=== PATIENT | male | born 1975 | race Caucasian/White ===

== ENCOUNTER 2017-05-01 09:04 | Inpatient (IN) | payer OTHER ==
[2017-05-01 09:31] VITALS: BMI 25.0
--- NOTE | 2017-05-01 09:44 | HP ---
CIWA Score - CIWA Score Nausea/Vomitin-Mild Nausea/No Vomiting Muscle Tremors: 4-Moderate,w/Arms Extend Anxiety: 4-Mod. Anxious/Guarded Agitation: 0-Normal Activity Paroxysmal Sweats: 1-Minimal Palms Moist Orientation: 0-Oriented Tacttile Disturbances: 1-Very Mild Itch/Numbness Auditory Disturbances: 1-Very Mild Visual Disturbances: 1-Very Mild Sensitivity Headache: 3-Moderate CIWA-Ar Total Score: 16 Admission ROS BHS - HPI Chief Complaint: I need to stop, this is crazy, I've never drank this much, honestly I can't stop on my own and I keep blacking out Allergies/Adverse Reactions: Allergies Allergy/AdvReac Type Severity Reaction Status Date / Time penicillin G Allergy Severe Hives Verified 05/01/17 09:25 History of Present Illness: 42 yo gentleman here for detox from alcohol - one of several admissions for detox, gives past history of seizure, black outs - hit head a week ago - evaluated at [facility], states multiple concussions due to black outs/falls. Exam Limitations: Clinical Condition - Ebola screening Have you traveled outside of the country in the last 21 days: No Have you had contact with anyone from an Ebola affected area: No Have you been sick,other than usual withdrawal symptoms: No Do you have a fever: No - Review of Systems Constitutional: Loss of Appetite, Malaise, Changes in sleep EENT: reports: Nose Congestion Respiratory: reports: Cough Cardiac: reports: No Symptoms Reported GI: reports: Poor Appetite, Poor Fluid Intake, Indigestion : reports: Frequency Musculoskeletal: reports: Back Pain Integumentary: reports: No Symptoms Reported Neuro: reports: Headache Endocrine: reports: No Symptoms Reported Hematology: reports: No Symptoms Reported Psychiatric: reports: Judgement Intact, Mood/Affect Appropiate, Orientated x3, Anxious Other Systems: Reviewed and Negative Patient History - Patient Medical History Hx Anemia: No Hx Asthma: No Hx Chronic Obstructive Pulmonary Disease (COPD): No Hx Cancer: No Hx Cardiac Disorders: No Hx Congestive Heart Failure: No Hx Hypertension: No Hx Hypercholesterolemia: No Hx Pacemaker: No HX Cerebrovascular Accident: No Hx Seizures: Yes (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.) Hx Dementia: No Hx Diabetes: No Hx Gastrointestinal Disorders: No Hx Liver Disease: No Hx Genitourinary Disorders: No Hx Sexually Transmitted Disorders: No Hx Renal Disease (ESRD): No Hx Thyroid Disease: No Hx Human Immunodeficiency Virus (HIV): No (last 2013) Hx Hepatitis C: No Hx Depression: No Hx Suicide Attempt: No Hx Bipolar Disorder: Yes (non compliance, hospitalized [facility] February 2017) Hx Schizophrenia: No Other Medical History: hx multiple concussions - Patient Surgical History Past Surgical History: Yes Hx Neurologic Surgery: No Hx Cataract Extraction: No Hx Cardiac Surgery: No Hx Lung Surgery: No Hx Breast Surgery: No Hx Breast Biopsy: No Hx Abdominal Surgery: No Hx Appendectomy: No Hx Cholecystectomy: No Hx Genitourinary Surgery: No Hx Section: No Hx Orthopedic Surgery: Yes (Left Knee at age 16 arthroscopic ) Other Surgical History: mandible left in 2012 Anesthesia Reaction: No - PPD History Previous Implant?: Yes Documented Results: Positive w/o proof (took IN H x 9 months - [place]- age 29) PPD to be Administered?: No - Reproductive History Patient is a Female of Child Bearing Age (11 -55 yrs old): No (male) - Smoking Cessation Smoking history: Current every day smoker Have you smoked in the past 12 months: Yes Aproximately how many cigarettes per day: 10 Cigars Per Day: 0 Hx Chewing Tobacco Use: No Initiated information on smoking cessation: Yes 'Breaking Loose' booklet given: 05/01/17 (give on floor) - Substance & Tx. History Hx Alcohol Use: Yes Hx Substance Use: Yes Substance Use Type: Alcohol, Cocaine, Heroin, Marijuana Hx Substance Use Treatment: Yes (detox, methadone in past, hx suboxone) - Substances Abused Alcohol Route: Oral Frequency: Daily Amount used: LIQOUR- 4 PINTS Age of first use: 13 Date of Last Use: 05/01/17 Cocaine Route: Inhalation Frequency: 1-3 times last 30 days Amount used: $40 Age of first use: 25 Date of Last Use: 04/30/17 Family Disease History - Family Disease History Family Disease History: Heart Disease: Father (living, hx etoh), Other: Grandparent (alcohol), Father, Mother (living, parkinsons, bzo), Brother (living , sober x3 years, chronic fatigue) Admission Physical Exam BHS - Vital Signs Vital Signs: Vital Signs - 24 hr 05/01/17 09:26 Temperature 98.5 F Pulse Rate 83 Respiratory 18 Rate Blood Pressure 128/78 - Physical General Appearance: Yes: Nourished, Appropriately Dressed, Mild Distress, Anxious HEENTM: Yes: Hearing grossly Normal, Normocephalic, Normal Voice, Pharynx Normal , Other (stitches over left eyebrow, echymosis over left eyelid) Respiratory: Yes: Normal Breath Sounds, No Respiratory Distress Neck: Yes: No masses,lesions,Nodules, Supple Breast: Yes: Breast Exam Deferred Cardiology: Yes: Regular Rhythm, Regular Rate Abdominal: Yes: Soft Genitourinary: Yes: Frequency Musculoskeletal: Yes: full range of Motion, Gait Steady Extremities: Yes: Normal Inspection, Normal Range of Motion, Non-Tender Neurological: Yes: Fully Oriented, Alert, Normal Mood/Affect, Normal Response Integumentary: Yes: Normal Color, Dry, Warm Lymphatic: Yes: Within Normal Limits - Diagnostic (1) Uncomplicated alcohol dependence Current Visit: Yes Status: Chronic (2) Nicotine dependence Current Visit: Yes Status: Chronic Qualifiers: Nicotine product type: cigarettes Substance use status: uncomplicated Qualified Code(s): F17.210 - Nicotine dependence, cigarettes, uncomplicated (3) PPD positive, treated Current Visit: Yes Status: Chronic Comment: treated with INH, CXR 07/24/16 negative (4) History of traumatic head injury Current Visit: Yes Status: Acute Comment: states blacked out a week ago - hit head - treated at [facility] - laceration of left eye - stitches Cleared for Admission [facility] - Detox or Rehab [facility] Level of Care: Medically Managed Detox Regimen/Protocol: Librium [facility] Breath Alcohol Content Breath Alcohol Content: 0 Urine Drug Screen - Results Drug Screen Negative: No Urine Drug Screen Results: HU-Cocaine
[2017-05-01] MEDS ORDERED: MAG HYDROX/AL HYDROX/SIMETH 30 ML UNIT-DOSE CUP PO PRN (10:04)
[2017-05-01] MEDS ORDERED: MAGNESIUM CITRATE 300 ML BOTTLE PO PRN (10:04)
[2017-05-01] MEDS ORDERED: hydrOXYzine PAMOATE 50 MG CAPSULE (FP) PO PRN (10:04)
[2017-05-01] MEDS ORDERED: ACETAMINOPHEN 325 MG TABLET (FP) PO PRN (10:04)
[2017-05-01] MEDS ORDERED: LOPERAMIDE HCL 2 MG CAPSULE PO PRN (10:04)
[2017-05-01] MEDS ORDERED: MENTHOL/PHENOL 1 EACH UD MM PRN (10:04)
[2017-05-01] MEDS ORDERED: MAGNESIUM HYDROX 2400MG/30ML ORAL SUSPENSION 30 ML CUP PO PRN (10:04)
[2017-05-01] MEDS ORDERED: chlordiazePOXIDE HCL 25 MG CAPSULE PO PRN (10:04)
[2017-05-01] MEDS ORDERED: chlordiazePOXIDE HCL 25 MG CAPSULE PO ONE (11:15)
[2017-05-01] MEDS: NICOTINE 21 MG/24 HOURS TOPICAL PATCH TD SCH (12:06)
[2017-05-01] MEDS: guaiFENesin/D-METHORPHAN HB 10 ML UNIT-DOSE CUPS PO PRN ×2 (13:42→23:33)
[2017-05-01] MEDS: P-EPHED 60MG/TRIPROLIDI 2.5MG TABLET PO PRN ×2 (13:42→23:33)
[2017-05-01] MEDS: chlordiazePOXIDE HCL 25 MG CAPSULE PO SCH ×2 (18:07→22:53)
[2017-05-01] MEDS ORDERED: diphenhydrAMINE HCL 50 MG CAPSULE PO PRN (22:00)
[2017-05-01] MEDS ORDERED: PATIENT'S OWN MEDICATION (NON-FORMULARY) (Gabapentin [Neurontin] 600 MG) PO SCH (22:00)
[2017-05-01 22:31] LABS: URINE APPEARANCE CLOUDY; URINE BILIRUBIN NEGATIVE (NEGATIVE); URINE BLOOD NEGATIVE (NEGATIVE); URINE COLOR AMBER; URINE GLUCOSE (UA) NEGATIVE (NEGATIVE); URINE KETONE 1+ (NEGATIVE); URINE LEUK ESTERASE NEGATIVE (NEGATIVE); URINE NITRITE NEGATIVE (NEGATIVE); URINE UROBILINOGEN NEGATIVE mg/dL (0.2-1.0)
[2017-05-01 22:38] LABS: URINE PROTEIN 1+ (NEGATIVE)
[2017-05-01 22:45] LABS: URINE BACTERIA RARE /hpf (NONE SEEN); URINE HYALINE CAST 21 /lpf; URINE MUCUS MANY; URINE RBC 2 /hpf (0-3); URINE WBC 4 /hpf (3-5)
[2017-05-01] MEDS: GABAPENTIN 300 MG CAPSULE (FP) PO SCH (22:53)
[2017-05-01] MEDS: THIAMINE HCL 100 MG TABLET (FP) PO SCH (22:53)
[2017-05-02] MEDS: chlordiazePOXIDE HCL 25 MG CAPSULE PO SCH ×4 (06:11→22:32)
[2017-05-02] MEDS: guaiFENesin/D-METHORPHAN HB 10 ML UNIT-DOSE CUPS PO PRN ×2 (07:13→21:35)
[2017-05-02] MEDS: P-EPHED 60MG/TRIPROLIDI 2.5MG TABLET PO PRN ×2 (07:13→21:35)
--- NOTE | 2017-05-02 09:56 | EKG ---
Test Reason : Blood Pressure : / mmHG Vent. Rate : 090 BPM Atrial Rate : 090 BPM P-R Int : 138 ms QRS Dur : 102 ms QT Int : 384 ms P-R-T Axes : 063 065 051 degrees QTc Int : 469 ms NORMAL SINUS RHYTHM POSSIBLE LEFT ATRIAL ENLARGEMENT NO PREVIOUS ECGS AVAILABLE Confirmed by MD GUILLERMO, LILY (2012) on 05/02/2017 9:55:43 AM Referred By: Confirmed By:LILY LI MD
[2017-05-02 09:57] LABS: MCH 31.5 pg (25.7-33.7); MCHC 34.1 g/dl (32.0-35.9); MEAN CELL VOLUME 92.2 fl (80-96); MEAN PLT VOLUME 9.3 fl (7.5-11.1); PLATELET COUNT 231 K/MM3 (134-434); RDW 13.8 % (11.9-15.9); WHITE BLOOD COUNT 7.4 K/mm3 (4.0-10.0)
[2017-05-02 10:00] LABS: ALBUMIN 3.9 g/dl (3.4-5.0); SGOT/AST 21 U/L (15-37); SGPT/ALT 39 U/L (12-78)
[2017-05-02 10:04] LABS: ALK PHOS 94 U/L (45-117); ANION GAP 10 (8-16); BILIRUBIN,TOTAL 0.5 mg/dL (0.2-1.0); CALCIUM 9.6 mg/dL (8.5-10.1); CO2 26 mmol/L (21-32); CREATININE 0.9 mg/dL (0.7-1.3); GLUCOSE,RANDOM 96 mg/dL (74-106); TOT PROT 7.2 g/dl (6.4-8.2)
[2017-05-02] MEDS: ASPIRIN 325 MG TABLET PO SCH (10:30)
[2017-05-02] MEDS: NICOTINE 21 MG/24 HOURS TOPICAL PATCH TD SCH (10:30)
[2017-05-02] MEDS: PRENATAL VITAMINS W/ FOLIC ACID TABLET (FP) PO SCH (10:30)
[2017-05-02] MEDS: AZITHROMYCIN 250 MG TABLET PO SCH (15:07)
--- NOTE | 2017-05-02 18:38 | PN ---
[facility] CIWA - CIWA Score Nausea/Vomitin-No Nausea/No Vomiting Muscle Tremors: 4-Moderate,w/Arms Extend Anxiety: 4-Mod. Anxious/Guarded Agitation: 3 Paroxysmal Sweats: 3 Orientation: 0-Oriented Tacttile Disturbances: 0-None Auditory Disturbances: 0-None Visual Disturbances: 0-None Headache: 0-None Present CIWA-Ar Total Score: 14 S Progress Note (SOAP) Subjective: Anxiety,tremors,sweating,restless,interrupted sleep. Objective: 05/02/17 18:37 Vital Signs - 8 hr 05/02/17 05/02/17 14:35 17:35 Temperature 98.1 F 97.9 F Pulse Rate 78 76 Respiratory 18 18 Rate Blood Pressure 121/81 117/70 Laboratory Last Values WBC 7.4 K/mm3 (4.0-10.0) D 05/02/17 07:50 RBC 5.04 M/mm3 (4.00-5.60) 05/02/17 07:50 Hgb 15.9 GM/dL (11.7-16.9) D 05/02/17 07:50 Hct 46.5 % (35.4-49) 05/02/17 07:50 MCV 92.2 fl (80-96) 05/02/17 07:50 MCH 31.5 pg (25.7-33.7) 05/02/17 07:50 MCHC 34.1 g/dl (32.0-35.9) 05/02/17 07:50 RDW 13.8 % (11.9-15.9) 05/02/17 07:50 Plt Count 231 K/MM3 (134-434) 05/02/17 07:50 MPV 9.3 fl (7.5-11.1) 05/02/17 07:50 Sodium 139 mmol/L (136-145) 05/02/17 07:50 Potassium 4.2 mmol/L (3.5-5.1) 05/02/17 07:50 Chloride 103 mmol/L (98-107) 05/02/17 07:50 Carbon Dioxide 26 mmol/L (21-32) 05/02/17 07:50 Anion Gap 10 (8-16) 05/02/17 07:50 BUN 10 mg/dL (7-18) D 05/02/17 07:50 Creatinine 0.9 mg/dL (0.7-1.3) 05/02/17 07:50 Creat Clearance w eGFR > 60 (>60) 05/02/17 07:50 Random Glucose 96 mg/dL (74-106) 05/02/17 07:50 Calcium 9.6 mg/dL (8.5-10.1) 05/02/17 07:50 Total Bilirubin 0.5 mg/dL (0.2-1.0) 05/02/17 07:50 AST 21 U/L (15-37) 05/02/17 07:50 ALT 39 U/L (12-78) D 05/02/17 07:50 Alkaline Phosphatase 94 U/L (45-117) 05/02/17 07:50 Total Protein 7.2 g/dl (6.4-8.2) 05/02/17 07:50 Albumin 3.9 g/dl (3.4-5.0) D 05/02/17 07:50 Urine Color 05/01/17 22:00 Urine Appearance Cloudy 05/01/17 22:00 Urine pH 5.0 (5.0-8.0) 05/01/17 22:00 Ur Specific [place] >= 1.030 (1.005-1.025) H 05/01/17 22:00 Urine Protein 1+ (NEGATIVE) H 05/01/17 22:00 Urine Glucose (UA) Negative (NEGATIVE) 05/01/17 22:00 Urine Ketones 1+ (NEGATIVE) H 05/01/17 22:00 Urine Blood Negative (NEGATIVE) 05/01/17 22:00 Urine Nitrite Negative (NEGATIVE) 05/01/17 22:00 Urine Bilirubin Negative (NEGATIVE) 05/01/17 22:00 Urine Urobilinogen Negative mg/dL (0.2-1.0) 05/01/17 22:00 Ur Leukocyte Esterase Negative (NEGATIVE) 05/01/17 22:00 Urine RBC 2 /hpf (0-3) 05/01/17 22:00 Urine WBC 4 /hpf (3-5) 05/01/17 22:00 Urine Bacteria Rare /hpf (NONE SEEN) 05/01/17 22:00 Hyaline Casts 21 /lpf 05/01/17 22:00 Urine Mucus Many 05/01/17 22:00 RPR Titer Nonreactive (NONREACTIVE) 05/02/17 07:50 labs noted Assessment: 05/02/17 18:38 Withdrawal sx. Plan: Continue detox
[2017-05-02] MEDS ORDERED: QUEtiapine FUMARATE 100 MG TABLET (FP) PO SCH (22:00)
[2017-05-02] MEDS: GABAPENTIN 300 MG CAPSULE (FP) PO SCH (22:32)
[2017-05-02] MEDS: THIAMINE HCL 100 MG TABLET (FP) PO SCH (22:33)
[2017-05-03] MEDS: guaiFENesin/D-METHORPHAN HB 10 ML UNIT-DOSE CUPS PO PRN ×2 (02:54→10:47)
[2017-05-03] MEDS: P-EPHED 60MG/TRIPROLIDI 2.5MG TABLET PO PRN ×2 (02:55→10:46)
[2017-05-03] MEDS: chlordiazePOXIDE HCL 25 MG CAPSULE PO SCH ×2 (05:21→10:43)
--- NOTE | 2017-05-03 08:52 | CONSULT ---
[facility] Psychiatric Consult - Data Date of interview: 05/03/17 Admission source: [facility] Identifying data: This is 42 years old male with no psychiatric hospitalization history intoxicated with: Alcohol, Cannabis, Cocaine and Nicotine Substance Abuse History: - Smoking Cessation. Smoking history: Current every day smoker. Have you smoked in the past 12 months: Yes. Aproximately how many cigarettes per day: 10. Cigars Per Day: 0. Hx Chewing Tobacco Use: No. Initiated information on smoking cessation: Yes. 'Breaking Loose' booklet given : 05/01/17 (give on floor). - Substance & Tx. History. Hx Alcohol Use: Yes. Hx Substance Use: Yes. Substance Use Type: Alcohol, Cocaine, Heroin, Marijuana. Hx Substance Use Treatment: Yes (detox, methadone in past, hx suboxone). - Substances Abused. Alcohol. Route: Oral. Frequency: Daily. Amount used: LIQOUR- 4 PINTS. Age of first use: 13. Date of Last Use: . Cocaine. Route: Inhalation. Frequency: 1-3 times last 30 days. Amount used: $40. Age of first use: 25. Date of Last Use: 04/30/17 Medical History: History od head injury, PPD+ history Psychiatric History: Patient reports history of anxiety and depression, reports taking prior to admission: Seroqueol 200mg po qhs, Gabapentine 600mg po tid. 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 typewriter inspector remind him Schizoaffective disgnosis Physical/Sexual Abuse/Trauma History: Denies Additional Comment: Seroqueol 200mg po qhs, Gabapentine 600mg po tid Mental Status Exam - Mental Status Exam Alert and Oriented to: Person Cognitive Function: Fair Patient Appearance: Unkempt Mood: Anxious Affect: Constricted Patient Behavior: Guarded Speech Pattern: Excessive Voice Loudness: Mildly Loud Thought Process: Goal Oriented Thought Disorder: Being Controlled Hallucinations: Denies Suicidal Ideation: Denies Homicidal Ideation: Denies Insight/Judgement: Fair Sleep: Difficulty falling asleep Appetite: Weight gain Muscle strength/Tone: Normal Gait/Station: Normal Additional Comments: Seroqueol 200mg po qhs, Gabapentine 600mg po tid Psychiatric Findings - Problem List ([place] 1, 2,3) (1) History of traumatic head injury Current Visit: Yes Status: Acute Comment: states blacked out a week ago - hit head - treated at [facility] - laceration of left eye - stitches (2) Nicotine dependence Current Visit: Yes Status: Chronic Qualifiers: Nicotine product type: cigarettes Substance use status: uncomplicated Qualified Code(s): F17.210 - Nicotine dependence, cigarettes, uncomplicated (3) Uncomplicated alcohol dependence Current Visit: Yes Status: Chronic (4) Cannabis dependence, uncomplicated Current Visit: No Status: Chronic (5) Cocaine dependence, uncomplicated Current Visit: No Status: Chronic (6) Schizoaffective disorder Current Visit: No Status: Chronic - Initial Treatment Plan Initial Treatment Plan: Seroqueol 200mg po qhs, Gabapentine 600mg po tid
[2017-05-03] MEDS: NICOTINE 21 MG/24 HOURS TOPICAL PATCH TD SCH (10:42)
[2017-05-03] MEDS: PRENATAL VITAMINS W/ FOLIC ACID TABLET (FP) PO SCH (10:42)
[2017-05-03] MEDS: ASPIRIN 325 MG TABLET PO SCH (10:42)
[2017-05-03] MEDS: AZITHROMYCIN 250 MG TABLET PO SCH (10:42)
--- NOTE | 2017-05-03 11:32 | PN ---
S CIWA - CIWA Score Nausea/Vomitin-No Nausea/No Vomiting Muscle Tremors: 3 Anxiety: 4-Mod. Anxious/Guarded Agitation: 4-Moderately Restless Paroxysmal Sweats: 3 Orientation: 0-Oriented Tacttile Disturbances: 0-None Auditory Disturbances: 0-None Visual Disturbances: 0-None Headache: 0-None Present CIWA-Ar Total Score: 14 BHS Progress Note (SOAP) Subjective: sweating,anxiety,tremors,interrupted sleep,restless. Pt. has sutures in left upper eyelid which were placed a week ago. Objective: 05/03/17 11:31 Vital Signs - 8 hr 05/03/17 05/03/17 06:00 09:45 Temperature 97.5 F L 95.7 F L Pulse Rate 60 83 Respiratory 18 16 Rate Blood Pressure 103/62 133/89 Laboratory Tests 05/01/17 05/02/17 05/02/17 22:00 07:50 07:50 WBC 7.4 D RBC 5.04 Hgb 15.9 D Hct 46.5 MCV 92.2 MCH 31.5 MCHC 34.1 RDW 13.8 Plt Count 231 MPV 9.3 Sodium 139 Potassium 4.2 Chloride 103 Carbon Dioxide 26 Anion Gap 10 BUN 10 D Creatinine 0.9 Creat Clearance w eGFR > 60 Random Glucose 96 Calcium 9.6 Total Bilirubin 0.5 AST 21 ALT 39 D Alkaline Phosphatase 94 Total Protein 7.2 Albumin 3.9 D Urine Color Sun Urine Appearance Cloudy Urine pH 5.0 Ur Specific [place] >= 1.030 H Urine Protein 1+ H Urine Glucose (UA) Negative Urine Ketones 1+ H Urine Blood Negative Urine Nitrite Negative Urine Bilirubin Negative Urine Urobilinogen Negative Ur Leukocyte Esterase Negative Urine RBC 2 Urine WBC 4 Urine Bacteria Rare Hyaline Casts 21 Urine Mucus Many RPR Titer 05/02/17 07:50 WBC RBC Hgb Hct MCV MCH MCHC RDW Plt Count MPV Sodium Potassium Chloride Carbon Dioxide Anion Gap BUN Creatinine Creat Clearance w eGFR Random Glucose Calcium Total Bilirubin AST ALT Alkaline Phosphatase Total Protein Albumin Urine Color Urine Appearance Urine pH Ur Specific [place] Urine Protein Urine Glucose (UA) Urine Ketones Urine Blood Urine Nitrite Urine Bilirubin Urine Urobilinogen Ur Leukocyte Esterase Urine RBC Urine WBC Urine Bacteria Hyaline Casts Urine Mucus RPR Titer Nonreactive labs noted Assessment: 05/03/17 11:31 Withdrawal sx. Plan: Continue detox
[2017-05-03] MEDS: GABAPENTIN 300 MG CAPSULE (FP) PO SCH ×2 (14:42→22:35)
[2017-05-03] MEDS: chlordiazePOXIDE 5 MG CAPSULE PO SCH ×2 (17:45→22:35)
[2017-05-03] MEDS: THIAMINE HCL 100 MG TABLET (FP) PO SCH (22:35)
[2017-05-03] MEDS: QUEtiapine FUMARATE 200 MG TABLET PO SCH (22:36)
[2017-05-04] MEDS: GABAPENTIN 300 MG CAPSULE (FP) PO SCH ×3 (06:35→22:27)
[2017-05-04] MEDS: chlordiazePOXIDE 5 MG CAPSULE PO SCH ×2 (06:35→11:17)
--- NOTE | 2017-05-04 10:17 | PN ---
BHS Progress Note (SOAP) Subjective: [place], sweats, interrupted sleep, anxiety, tremors Objective: 05/04/17 10:16 Vital Signs - 8 hr 05/04/17 05/04/17 03:30 06:41 Temperature 97.3 F L Pulse Rate 75 Respiratory 18 16 Rate Blood Pressure 103/69 Laboratory Tests 05/01/17 05/02/17 05/02/17 22:00 07:50 07:50 WBC 7.4 D RBC 5.04 Hgb 15.9 D Hct 46.5 MCV 92.2 MCH 31.5 MCHC 34.1 RDW 13.8 Plt Count 231 MPV 9.3 Sodium 139 Potassium 4.2 Chloride 103 Carbon Dioxide 26 Anion Gap 10 BUN 10 D Creatinine 0.9 Creat Clearance w eGFR > 60 Random Glucose 96 Calcium 9.6 Total Bilirubin 0.5 AST 21 ALT 39 D Alkaline Phosphatase 94 Total Protein 7.2 Albumin 3.9 D Urine Color Sun Urine Appearance Cloudy Urine pH 5.0 Ur Specific [place] >= 1.030 H Urine Protein 1+ H Urine Glucose (UA) Negative Urine Ketones 1+ H Urine Blood Negative Urine Nitrite Negative Urine Bilirubin Negative Urine Urobilinogen Negative Ur Leukocyte Esterase Negative Urine RBC 2 Urine WBC 4 Urine Bacteria Rare Hyaline Casts 21 Urine Mucus Many RPR Titer 05/02/17 07:50 WBC RBC Hgb Hct MCV MCH MCHC RDW Plt Count MPV Sodium Potassium Chloride Carbon Dioxide Anion Gap BUN Creatinine Creat Clearance w eGFR Random Glucose Calcium Total Bilirubin AST ALT Alkaline Phosphatase Total Protein Albumin Urine Color Urine Appearance Urine pH Ur Specific [place] Urine Protein Urine Glucose (UA) Urine Ketones Urine Blood Urine Nitrite Urine Bilirubin Urine Urobilinogen Ur Leukocyte Esterase Urine RBC Urine WBC Urine Bacteria Hyaline Casts Urine Mucus RPR Titer Nonreactive Assessment: 05/04/17 10:16 withdrawal sx Plan: cont detox
[2017-05-04] MEDS: AZITHROMYCIN 250 MG TABLET PO SCH (11:17)
[2017-05-04] MEDS: PRENATAL VITAMINS W/ FOLIC ACID TABLET (FP) PO SCH (11:17)
[2017-05-04] MEDS: ASPIRIN 325 MG TABLET PO SCH (11:17)
[2017-05-04] MEDS: NICOTINE 21 MG/24 HOURS TOPICAL PATCH TD SCH (11:18)
[2017-05-04] MEDS: chlordiazePOXIDE HCL 10 MG CAPSULE PO SCH ×2 (17:40→22:27)
[2017-05-04] MEDS: guaiFENesin/D-METHORPHAN HB 10 ML UNIT-DOSE CUPS PO PRN (20:15)
[2017-05-04] MEDS: P-EPHED 60MG/TRIPROLIDI 2.5MG TABLET PO PRN (20:15)
[2017-05-04] MEDS: QUEtiapine FUMARATE 200 MG TABLET PO SCH (22:27)
[2017-05-04] MEDS: THIAMINE HCL 100 MG TABLET (FP) PO SCH (22:27)
[2017-05-05] MEDS: GABAPENTIN 300 MG CAPSULE (FP) PO SCH (05:26)
[2017-05-05] MEDS: chlordiazePOXIDE HCL 10 MG CAPSULE PO SCH (05:26)
--- NOTE | 2017-05-05 10:03 | DS ---
[facility] Detox Discharge Summary Admission Date: 05/01/17 Discharge Date: 05/05/17 - History Present History: Alcohol Dependence, Cannabis Dependence, Cocaine Dependence Pertinent Past History: anxiety, insomnia, depression, nicotien dependence - Physical Exam Results Vital Signs: Vital Signs Temperature 97.7 F 05/05/17 06:26 Pulse Rate 78 05/05/17 06:26 Respiratory Rate 18 05/05/17 06:26 Blood Pressure 101/70 05/05/17 06:26 O2 Sat by Pulse Oximetry (%) Laboratory Tests 05/01/17 05/02/17 05/02/17 22:00 07:50 07:50 WBC 7.4 D RBC 5.04 Hgb 15.9 D Hct 46.5 MCV 92.2 MCH 31.5 MCHC 34.1 RDW 13.8 Plt Count 231 MPV 9.3 Sodium 139 Potassium 4.2 Chloride 103 Carbon Dioxide 26 Anion Gap 10 BUN 10 D Creatinine 0.9 Creat Clearance w eGFR > 60 Random Glucose 96 Calcium 9.6 Total Bilirubin 0.5 AST 21 ALT 39 D Alkaline Phosphatase 94 Total Protein 7.2 Albumin 3.9 D Urine Color Sun Urine Appearance Cloudy Urine pH 5.0 Ur Specific [place] >= 1.030 H Urine Protein 1+ H Urine Glucose (UA) Negative Urine Ketones 1+ H Urine Blood Negative Urine Nitrite Negative Urine Bilirubin Negative Urine Urobilinogen Negative Ur Leukocyte Esterase Negative Urine RBC 2 Urine WBC 4 Urine Bacteria Rare Hyaline Casts 21 Urine Mucus Many RPR Titer 05/02/17 07:50 WBC RBC Hgb Hct MCV MCH MCHC RDW Plt Count MPV Sodium Potassium Chloride Carbon Dioxide Anion Gap BUN Creatinine Creat Clearance w eGFR Random Glucose Calcium Total Bilirubin AST ALT Alkaline Phosphatase Total Protein Albumin Urine Color Urine Appearance Urine pH Ur Specific [place] Urine Protein Urine Glucose (UA) Urine Ketones Urine Blood Urine Nitrite Urine Bilirubin Urine Urobilinogen Ur Leukocyte Esterase Urine RBC Urine WBC Urine Bacteria Hyaline Casts Urine Mucus RPR Titer Nonreactive Pertinent Admission Physical Exam Findings: withdrawwal sx - Treatment Hospital Course: Detox Protocol Followed, Detoxed Safely, Responded well, Discharged Condition Good, Rehab Referral Accepted - Medication Discharge Medications: Ambulatory Orders Venlafaxine HCl ER [Effexor Xr -] 75 mg PO DAILY 07/23/16 Aspirin [ASA -] 325 mg PO DAILY 05/01/17 Gabapentin [Neurontin] 600 mg PO HS 05/01/17 Quetiapine Fumarate [Seroquel -] 200 mg PO HS 05/01/17 Gabapentin [Neurontin -] 600 mg PO HS #90 cap 05/03/17 Quetiapine Fumarate [Seroquel -] 200 mg PO HS #30 tab 05/03/17 - Diagnosis (1) History of traumatic head injury Current Visit: No Status: Inactive (2) Nicotine dependence Current Visit: Yes Status: Chronic Qualifiers: Nicotine product type: cigarettes Substance use status: uncomplicated Qualified Code(s): F17.210 - Nicotine dependence, cigarettes, uncomplicated (3) PPD positive, treated Current Visit: No Status: Inactive (4) Cannabis dependence, uncomplicated Current Visit: No Status: Chronic (5) Cocaine dependence, uncomplicated Current Visit: Yes Status: Chronic (6) Neuropathy Current Visit: Yes Status: Chronic (7) Schizoaffective disorder Current Visit: Yes Status: Chronic (8) Varicose vein of leg Current Visit: No Status: Chronic (9) Alcohol dependence with uncomplicated withdrawal Current Visit: Yes Status: Acute - AMA Did Patient Leave Against Medical Advice: No
[2017-05-05 11:45] VITALS: BP 127/87; PULSE 107; TEMP 97.5
== END 2017-05-05 09:24 | disposition home or self-care (01) | DRG 774 ==
LOC: YASAS 09:04 → Y6N 10:30
PROVIDERS: ADMIT Internal Medicine Addiction Medicine; ATTEND Internal Medicine Addiction Medicine
PROC: HZ2ZZZZ Detoxification Services for Substance Abuse Treatment (ICD-10-PCS; principal; 2017-05-01)
DX: F10.230 Alcohol dependence with withdrawal, uncomplicated (principal); F14.20 Cocaine dependence, uncomplicated; F12.20 Cannabis dependence, uncomplicated; F17.210 Nicotine dependence, cigarettes, uncomplicated; F25.9 Schizoaffective disorder, unspecified; F31.9 Bipolar disorder, unspecified; G40.509 Epileptic seizures related to external causes, not intractable, without status epilepticus
CPT/HCPCS: 36415; 80053; 81003; 81015; 85027; 86593; 93005; 93010

== ENCOUNTER 2017-09-28 11:05 | Inpatient (IN) | payer OTHER ==
[2017-09-28 13:38] VITALS: BMI 26.4
--- NOTE | 2017-09-28 14:11 | HP ---
CIWA Score - CIWA Score Nausea/Vomitin-No Nausea/No Vomiting Muscle Tremors: 4-Moderate,w/Arms Extend Anxiety: 4-Mod. Anxious/Guarded Agitation: 4-Moderately Restless Paroxysmal Sweats: 3 Orientation: 0-Oriented Tacttile Disturbances: 0-None Auditory Disturbances: 0-None Visual Disturbances: 0-None Headache: 1-Very Mild CIWA-Ar Total Score: 16 Admission ROS BHS - HPI Chief Complaint: I need to detox and go to rehab Allergies/Adverse Reactions: Allergies Allergy/AdvReac Type Severity Reaction Status Date / Time penicillin G Allergy Severe Hives Verified 09/28/17 13:44 History of Present Illness: pt is a 42yr old male with a history of alcohol dependence seeking detox for treatment. Exam Limitations: No Limitations - Ebola screening Have you traveled outside of the country in the last 21 days: No (N) Have you had contact with anyone from an Ebola affected area: No Have you been sick,other than usual withdrawal symptoms: No Do you have a fever: No - Review of Systems Constitutional: Chills, Night Sweats, Changes in sleep EENT: reports: No Symptoms Reported Respiratory: reports: No Symptoms reported Cardiac: reports: Syncope GI: reports: Constipated, Diarrhea, Nausea, Poor Appetite, Poor Fluid Intake : reports: No Symptoms Reported Musculoskeletal: reports: Back Pain, Joint Pain Integumentary: reports: Flushing, Sweating Neuro: reports: Headache, Tingling, Tremors Endocrine: reports: Excessive Sweating, Flushing, Intolerance to Cold, Intolerance to Heat Hematology: reports: No Symptoms Reported Psychiatric: reports: Judgement Intact, Mood/Affect Appropiate, Orientated x3, Agitated, Anxious, Depressed Other Systems: Reviewed and Negative Patient History - Patient Medical History Hx Anemia: No Hx Asthma: No Hx Chronic Obstructive Pulmonary Disease (COPD): No Hx Cancer: No Hx Cardiac Disorders: No Hx Congestive Heart Failure: No Hx Hypertension: No Hx Hypercholesterolemia: No Hx Pacemaker: No HX Cerebrovascular Accident: No Hx Seizures: No Hx Dementia: No Hx Diabetes: No Hx Gastrointestinal Disorders: Yes (STOMACH ULCER resolved) Hx Liver Disease: No Hx Genitourinary Disorders: No Hx Sexually Transmitted Disorders: No Hx Renal Disease (ESRD): No Hx Thyroid Disease: No Hx Human Immunodeficiency Virus (HIV): No (negative) Hx Hepatitis C: No (negative) Hx Depression: No Hx Suicide Attempt: No (denies) Hx Bipolar Disorder: Yes (non compliance, hospitalized [facility] February 2017) Hx Schizophrenia: No - Patient Surgical History Past Surgical History: Yes Hx Neurologic Surgery: No Hx Cataract Extraction: No Hx Cardiac Surgery: No Hx Lung Surgery: No Hx Breast Surgery: No Hx Breast Biopsy: No Hx Abdominal Surgery: No Hx Appendectomy: No Hx Cholecystectomy: No Hx Genitourinary Surgery: No Hx Section: No Hx Orthopedic Surgery: Yes (Left Knee at age 16 arthroscopic ) Other Surgical History: mandible left in 2012/ tooth removed 2weeks ago 2018 Anesthesia Reaction: No - PPD History Previous Implant?: Yes Documented Results: Positive w/o proof PPD to be Administered?: No - Reproductive History Patient is a Female of Child Bearing Age (11 -55 yrs old): No - Smoking Cessation Smoking history: Current every day smoker Have you smoked in the past 12 months: Yes Aproximately how many cigarettes per day: 10 Cigars Per Day: 0 Hx Chewing Tobacco Use: No Initiated information on smoking cessation: Yes 'Breaking Loose' booklet given: 09/28/17 - Substance & Tx. History Hx Alcohol Use: Yes Substance Use Type: Alcohol Hx Substance Use Treatment: Yes (last detox [facility] 04/2017) - Substances Abused Alcohol-vodka/beer Route: Oral Frequency: Daily Amount used: 5-6 pts./1-2 6 pks. Age of first use: 15 Date of Last Use: 09/27/17 Family Disease History - Family Disease History Family Disease History: Heart Disease: Father (living, hx etoh), Other: Grandparent (alcohol), Father, Mother (living, parkinsons, bzo), Brother (living , sober x3 years, chronic fatigue) Admission Physical Exam BHS - Vital Signs Vital Signs: Vital Signs - 24 hr 09/28/17 13:35 Temperature 98.9 F Pulse Rate 103 H Respiratory 20 Rate Blood Pressure 159/91 - Physical General Appearance: Yes: Appropriately Dressed, Moderate Distress, Tremorous, Irritable, Sweating, Anxious HEENTM: Yes: Hearing grossly Normal, Normal Voice, Nasal Congestion Respiratory: Yes: Lungs Clear, Normal Breath Sounds, No Respiratory Distress Neck: Yes: No masses,lesions,Nodules Breast: Yes: Within Normal Limits Cardiology: Yes: Regular Rhythm, Regular Rate, S1, S2, Tachycardia Abdominal: Yes: Normal Bowel Sounds, Non Tender, Soft Genitourinary: Yes: Within Normal Limits Back: Yes: Normal Inspection Musculoskeletal: Yes: full range of Motion, Back pain Extremities: Yes: Normal Capillary Refill, Non-Tender, Tremors Neurological: Yes: Fully Oriented, Alert, Normal Response Integumentary: Yes: Normal Color, Diaphoresis Lymphatic: Yes: Within Normal Limits - Diagnostic (1) Alcohol dependence with uncomplicated withdrawal Current Visit: Yes Status: Chronic (2) Cocaine dependence, uncomplicated Current Visit: No Status: Chronic (3) Neuropathy Current Visit: Yes Status: Chronic (4) Nicotine dependence Current Visit: Yes Status: Chronic Qualifiers: Nicotine product type: cigarettes Substance use status: uncomplicated Qualified Code(s): F17.210 - Nicotine dependence, cigarettes, uncomplicated (5) Varicose vein of leg Current Visit: No Status: Chronic Comment: stocking Cleared for Admission S - Detox or Rehab [facility] Level of Care: Medically Managed Detox Regimen/Protocol: Librium S Breath Alcohol Content Breath Alcohol Content: 0 Urine Drug Screen - Results Drug Screen Negative: No Urine Drug Screen Results: TCA-Tricyclic Antidepress
[2017-09-28] MEDS ORDERED: MAGNESIUM CITRATE 300 ML BOTTLE PO PRN (14:18)
[2017-09-28] MEDS ORDERED: MENTHOL/PHENOL 1 EACH UD MM PRN (14:18)
[2017-09-28] MEDS ORDERED: ACETAMINOPHEN 325 MG TABLET (FP) PO PRN (14:18)
[2017-09-28] MEDS ORDERED: P-EPHED 60MG/TRIPROLIDI 2.5MG TABLET PO PRN (14:18)
[2017-09-28] MEDS ORDERED: chlordiazePOXIDE HCL 25 MG CAPSULE PO PRN (14:18)
[2017-09-28] MEDS ORDERED: IBUPROFEN 400 MG TABLET (FP) PO PRN (14:18)
[2017-09-28] MEDS ORDERED: hydrOXYzine PAMOATE 50 MG CAPSULE (FP) PO PRN (14:18)
[2017-09-28] MEDS ORDERED: guaiFENesin/D-METHORPHAN HB 10 ML UNIT-DOSE CUPS PO PRN (14:18)
[2017-09-28] MEDS ORDERED: MAGNESIUM HYDROX 2400MG/30ML ORAL SUSPENSION 30 ML CUP PO PRN (14:18)
[2017-09-28] MEDS ORDERED: chlordiazePOXIDE HCL 25 MG CAPSULE PO ONE (15:00)
--- NOTE | 2017-09-28 17:30 | EKG ---
Test Reason : Blood Pressure : / mmHG Vent. Rate : 079 BPM Atrial Rate : 079 BPM P-R Int : 136 ms QRS Dur : 102 ms QT Int : 382 ms P-R-T Axes : 064 068 033 degrees QTc Int : 438 ms NORMAL SINUS RHYTHM MODERATE VOLTAGE CRITERIA FOR LVH, MAY BE NORMAL VARIANT BORDERLINE ECG WHEN COMPARED WITH ECG OF 01-MAY-2017 11:17, NO SIGNIFICANT CHANGE WAS FOUND Confirmed by Buzz Young ([id number]) on 09/28/2017 5:29:59 PM Referred By: Confirmed By:Buzz Young
[2017-09-28] MEDS: chlordiazePOXIDE HCL 25 MG CAPSULE PO SCH ×2 (17:32→22:44)
[2017-09-28] MEDS: LOPERAMIDE HCL 2 MG CAPSULE PO PRN (20:30)
[2017-09-28] MEDS: THIAMINE HCL 100 MG TABLET (FP) PO SCH (22:44)
[2017-09-28] MEDS: GABAPENTIN 300 MG CAPSULE (FP) PO SCH (22:44)
[2017-09-28] MEDS: NICOTINE POLACRILEX 4 MG GUM BUC PRN (22:47)
[2017-09-28 23:18] LABS: URINE APPEARANCE CLEAR; URINE BILIRUBIN NEGATIVE (NEGATIVE); URINE BLOOD NEGATIVE (NEGATIVE); URINE COLOR YELLOW; URINE GLUCOSE (UA) NEGATIVE (NEGATIVE); URINE KETONE TRACE (NEGATIVE); URINE LEUK ESTERASE NEGATIVE (NEGATIVE); URINE NITRITE NEGATIVE (NEGATIVE); URINE PROTEIN NEGATIVE (NEGATIVE); URINE UROBILINOGEN NEGATIVE mg/dL (0.2-1.0)
[2017-09-29] MEDS: chlordiazePOXIDE HCL 25 MG CAPSULE PO SCH ×4 (06:05→22:05)
[2017-09-29] MEDS: ASPIRIN 325 MG TABLET PO SCH (10:12)
[2017-09-29] MEDS: NICOTINE 21 MG/24 HOURS TOPICAL PATCH TD SCH (10:12)
[2017-09-29] MEDS: PRENATAL VITAMINS W/ FOLIC ACID TABLET (FP) PO SCH (10:12)
[2017-09-29] MEDS: NICOTINE POLACRILEX 4 MG GUM BUC PRN (10:13)
[2017-09-29] MEDS: LOPERAMIDE HCL 2 MG CAPSULE PO PRN (10:16)
[2017-09-29 10:21] LABS: HEMATOCRIT 40.9 % (35.4-49); HEMOGLOBIN 13.5 GM/dL (11.7-16.9); MCH 30.2 pg (25.7-33.7); MEAN CELL VOLUME 91.7 fl (80-96); MEAN PLT VOLUME 9.3 fl (7.5-11.1); PLATELET COUNT 263 K/MM3 (134-434); RBC 4.46 M/mm3 (4.00-5.60); RDW 12.7 % (11.9-15.9); WHITE BLOOD COUNT 7.9 K/mm3 (4.0-10.0)
[2017-09-29 10:43] LABS: ALBUMIN 4.1 g/dl (3.4-5.0); ANION GAP 7 (8-16); BLOOD UREA NITROGEN 15 mg/dL (7-18); CALCIUM 8.6 mg/dL (8.5-10.1); CHLORIDE 102 mmol/L (98-107); CO2 29 mmol/L (21-32); CREATININE 0.9 mg/dL (0.7-1.3); GLUCOSE,RANDOM 111 mg/dL (74-106); POTASSIUM 3.9 mmol/L (3.5-5.1); SGOT/AST 62 U/L (15-37); SGPT/ALT 49 U/L (12-78); SODIUM 138 mmol/L (136-145)
[2017-09-29 10:46] LABS: ALK PHOS 76 U/L (45-117); BILIRUBIN,TOTAL 1.2 mg/dL (0.2-1.0); TOT PROT 6.7 g/dl (6.4-8.2)
--- NOTE | 2017-09-29 11:19 | PN ---
[facility] CIWA - CIWA Score Nausea/Vomitin-No Nausea/No Vomiting Muscle Tremors: 4-Moderate,w/Arms Extend Anxiety: 4-Mod. Anxious/Guarded Agitation: 4-Moderately Restless Paroxysmal Sweats: 1-Minimal Palms Moist Orientation: 0-Oriented Tacttile Disturbances: 3-Moderate Itch/Numb/Burn Auditory Disturbances: 0-None Visual Disturbances: 0-None Headache: 0-None Present CIWA-Ar Total Score: 16 S Progress Note (SOAP) Subjective: ANXIETY,TREMORS,SWEATS-"SOAKING WET ALL NIGHT", "NAUSEA/DIARRHEA". Objective: 09/29/17 11:18 Vital Signs Temperature 96.4 F L 09/29/17 09:06 Pulse Rate 94 H 09/29/17 09:06 Respiratory Rate 18 09/29/17 09:06 Blood Pressure 123/85 09/29/17 09:06 O2 Sat by Pulse Oximetry (%) Laboratory Last Values WBC 7.9 K/mm3 (4.0-10.0) 09/29/17 06:00 RBC 4.46 M/mm3 (4.00-5.60) 09/29/17 06:00 Hgb 13.5 GM/dL (11.7-16.9) D 09/29/17 06:00 Hct 40.9 % (35.4-49) 09/29/17 06:00 MCV 91.7 fl (80-96) 09/29/17 06:00 MCH 30.2 pg (25.7-33.7) 09/29/17 06:00 MCHC 33.0 g/dl (32.0-35.9) 09/29/17 06:00 RDW 12.7 % (11.9-15.9) 09/29/17 06:00 Plt Count 263 K/MM3 (134-434) 09/29/17 06:00 MPV 9.3 fl (7.5-11.1) 09/29/17 06:00 Sodium 138 mmol/L (136-145) 09/29/17 06:00 Potassium 3.9 mmol/L (3.5-5.1) 09/29/17 06:00 Chloride 102 mmol/L (98-107) 09/29/17 06:00 Carbon Dioxide 29 mmol/L (21-32) 09/29/17 06:00 Anion Gap 7 (8-16) L 09/29/17 06:00 BUN 15 mg/dL (7-18) D 09/29/17 06:00 Creatinine 0.9 mg/dL (0.7-1.3) 09/29/17 06:00 Creat Clearance w eGFR > 60 (>60) 09/29/17 06:00 Random Glucose 111 mg/dL (74-106) H 09/29/17 06:00 Calcium 8.6 mg/dL (8.5-10.1) 09/29/17 06:00 Total Bilirubin 1.2 mg/dL (0.2-1.0) H D 09/29/17 06:00 AST 62 U/L (15-37) H D 09/29/17 06:00 ALT 49 U/L (12-78) D 09/29/17 06:00 Alkaline Phosphatase 76 U/L (45-117) 09/29/17 06:00 Total Protein 6.7 g/dl (6.4-8.2) 09/29/17 06:00 Albumin 4.1 g/dl (3.4-5.0) 09/29/17 06:00 Urine Color Yellow 09/28/17 08:20 Urine Appearance Clear 09/28/17 08:20 Urine pH 6.0 (5.0-8.0) 09/28/17 08:20 Ur Specific [place] 1.020 (1.001-1.035) 09/28/17 08:20 Urine Protein Negative (NEGATIVE) 09/28/17 08:20 Urine Glucose (UA) Negative (NEGATIVE) 09/28/17 08:20 Urine Ketones Trace (NEGATIVE) H 09/28/17 08:20 Urine Blood Negative (NEGATIVE) 09/28/17 08:20 Urine Nitrite Negative (NEGATIVE) 09/28/17 08:20 Urine Bilirubin Negative (NEGATIVE) 09/28/17 08:20 Urine Urobilinogen Negative mg/dL (0.2-1.0) 09/28/17 08:20 Ur Leukocyte Esterase Negative (NEGATIVE) 09/28/17 08:20 Assessment: 09/29/17 11:18 WITHDRAWAL SX Plan: CONTINUE DETOX
[2017-09-29] MEDS: MAG HYDROX/AL HYDROX/SIMETH 30 ML UNIT-DOSE CUP PO PRN ×2 (12:47→20:55)
--- NOTE | 2017-09-29 15:22 | CONSULT ---
[facility] Psychiatric Consult - Data Date of interview: 09/29/17 Admission source: [facility] Identifying data: One of multiple admissions to [facility] for this 42 y/o male seeking detox treatment on for alcohol,cocaine and marijuana dependence.Patient is single without children,homeless ([facility] senior living),unemployed and supported on welfare. Substance Abuse History: Confirmed by patient in this session.details in current [facility] report .Smoking history: Current every day smoker. Have you smoked in the past 12 months: Yes. Aproximately how many cigarettes per day: 10. Cigars Per Day: 0. Hx Chewing Tobacco Use: No. Initiated information on smoking cessation: Yes. 'Breaking Loose' booklet given: 09/28/17. - Substance & Tx. History. Hx Alcohol Use: Yes. Substance Use Type: Alcohol. Hx Substance Use Treatment: Yes (last detox [facility] 04/2017). - Substances Abused. Alcohol-vodka/beer. Route: Oral. Frequency: Daily. Amount used: 5 -6 pts./1-2 6 pks. Age of first use: 15. Date of Last Use: 09/27/17 Medical History: History of gastric ulcer,peripheral neuropathy,deep vein thrombosis,antecedent of substance-related seizures and past surgeries ( fracture of left mandilble in 2013 + arthroscopic surgery on left knee at age16) . Psychiatric History: Onset of psychiatric disturbances : age 19 (admission to [facility]).Diagnosed with Bipolar Disorder and PTSD.Patient reports past retentions to [facility] ([place]),[facility] and [facility] (more than 10 psychiatric hospitalizations).Mr Tapia used to attend [facility] OPD.Past maintenance on depakote, seroquel, effexor XR and vistaril prn.Has janes off psychotropic medications for months.No OPD care.Patient denies history of suicide attempts. Physical/Sexual Abuse/Trauma History: Patient denies. Additional Comment: Urine Drug Screen Results: TCA-Tricyclic Antidepressant.Noted. Mental Status Exam - Mental Status Exam Alert and Oriented to: Time, Place, Person Cognitive Function: Good Patient Appearance: Unkempt, Disheveled (tall stature) Mood: Angry, Withdrawn, Anxious, Irritable Affect: Mood Congruent Patient Behavior: Fatigued, Cooperative Speech Pattern: Clear, Appropriate Voice Loudness: Normal Thought Process: Goal Oriented Thought Disorder: Not Present Hallucinations: Denies Suicidal Ideation: Denies Homicidal Ideation: Denies Insight/Judgement: Poor Sleep: Poorly, Difficulty falling asleep Appetite: Good Muscle strength/Tone: Normal Gait/Station: Normal Psychiatric Findings - Problem List ([place] 1, 2,3) (1) Alcohol dependence with uncomplicated withdrawal Current Visit: Yes Status: Acute (2) Nicotine dependence Current Visit: Yes Status: Acute Qualifiers: Nicotine product type: cigarettes Substance use status: uncomplicated Qualified Code(s): F17.210 - Nicotine dependence, cigarettes, uncomplicated (3) Substance induced mood disorder Current Visit: Yes Status: Acute (4) Insomnia Current Visit: Yes Status: Acute - Initial Treatment Plan Initial Treatment Plan: Psychoeducation.Records revisited.Sleep hygiene discussed.Detoxification in progress.Seroquel 100 mg po hs.Ordered at patient's request.Side effects/benefits discussed with patient.Mr Tapia is in agreement with this careplan.Observation.
[2017-09-29] MEDS: GABAPENTIN 300 MG CAPSULE (FP) PO SCH (22:05)
[2017-09-29] MEDS: QUEtiapine FUMARATE 100 MG TABLET (FP) PO SCH (22:05)
[2017-09-29] MEDS: THIAMINE HCL 100 MG TABLET (FP) PO SCH (22:05)
[2017-09-30] MEDS: chlordiazePOXIDE HCL 25 MG CAPSULE PO SCH ×2 (06:31→10:37)
[2017-09-30] MEDS: PRENATAL VITAMINS W/ FOLIC ACID TABLET (FP) PO SCH (10:37)
[2017-09-30] MEDS: ASPIRIN 325 MG TABLET PO SCH (10:37)
[2017-09-30] MEDS: NICOTINE 21 MG/24 HOURS TOPICAL PATCH TD SCH (10:38)
[2017-09-30] MEDS: NICOTINE POLACRILEX 4 MG GUM BUC PRN ×3 (10:38→22:18)
--- NOTE | 2017-09-30 11:39 | PN ---
[facility] CIWA - CIWA Score Nausea/Vomitin-No Nausea/No Vomiting Muscle Tremors: 3 Anxiety: 4-Mod. Anxious/Guarded Agitation: 4-Moderately Restless Paroxysmal Sweats: 1-Minimal Palms Moist Orientation: 0-Oriented Tacttile Disturbances: 3-Moderate Itch/Numb/Burn Auditory Disturbances: 0-None Visual Disturbances: 0-None Headache: 0-None Present CIWA-Ar Total Score: 15 S Progress Note (SOAP) Subjective: ANXIETY,IRRITABILITY,SWEATS,TREMORS, INTERMITTENT SLEEP. Objective: 09/30/17 11:38 Vital Signs Temperature 98.2 F 09/30/17 09:29 Pulse Rate 102 H 09/30/17 09:29 Respiratory Rate 20 09/30/17 09:29 Blood Pressure 155/96 09/30/17 09:29 O2 Sat by Pulse Oximetry (%) Laboratory Last Values WBC 7.9 K/mm3 (4.0-10.0) 09/29/17 06:00 RBC 4.46 M/mm3 (4.00-5.60) 09/29/17 06:00 Hgb 13.5 GM/dL (11.7-16.9) D 09/29/17 06:00 Hct 40.9 % (35.4-49) 09/29/17 06:00 MCV 91.7 fl (80-96) 09/29/17 06:00 MCH 30.2 pg (25.7-33.7) 09/29/17 06:00 MCHC 33.0 g/dl (32.0-35.9) 09/29/17 06:00 RDW 12.7 % (11.9-15.9) 09/29/17 06:00 Plt Count 263 K/MM3 (134-434) 09/29/17 06:00 MPV 9.3 fl (7.5-11.1) 09/29/17 06:00 Sodium 138 mmol/L (136-145) 09/29/17 06:00 Potassium 3.9 mmol/L (3.5-5.1) 09/29/17 06:00 Chloride 102 mmol/L (98-107) 09/29/17 06:00 Carbon Dioxide 29 mmol/L (21-32) 09/29/17 06:00 Anion Gap 7 (8-16) L 09/29/17 06:00 BUN 15 mg/dL (7-18) D 09/29/17 06:00 Creatinine 0.9 mg/dL (0.7-1.3) 09/29/17 06:00 Creat Clearance w eGFR > 60 (>60) 09/29/17 06:00 Random Glucose 111 mg/dL (74-106) H 09/29/17 06:00 Calcium 8.6 mg/dL (8.5-10.1) 09/29/17 06:00 Total Bilirubin 1.2 mg/dL (0.2-1.0) H D 09/29/17 06:00 AST 62 U/L (15-37) H D 09/29/17 06:00 ALT 49 U/L (12-78) D 09/29/17 06:00 Alkaline Phosphatase 76 U/L (45-117) 09/29/17 06:00 Total Protein 6.7 g/dl (6.4-8.2) 09/29/17 06:00 Albumin 4.1 g/dl (3.4-5.0) 09/29/17 06:00 Urine Color Yellow 09/28/17 08:20 Urine Appearance Clear 09/28/17 08:20 Urine pH 6.0 (5.0-8.0) 09/28/17 08:20 Ur Specific [place] 1.020 (1.001-1.035) 09/28/17 08:20 Urine Protein Negative (NEGATIVE) 09/28/17 08:20 Urine Glucose (UA) Negative (NEGATIVE) 09/28/17 08:20 Urine Ketones Trace (NEGATIVE) H 09/28/17 08:20 Urine Blood Negative (NEGATIVE) 09/28/17 08:20 Urine Nitrite Negative (NEGATIVE) 09/28/17 08:20 Urine Bilirubin Negative (NEGATIVE) 09/28/17 08:20 Urine Urobilinogen Negative mg/dL (0.2-1.0) 09/28/17 08:20 Ur Leukocyte Esterase Negative (NEGATIVE) 09/28/17 08:20 RPR Titer Nonreactive (NONREACTIVE) 09/29/17 06:00 HIV 1&2 Antibody Screen Negative 09/28/17 06:00 HIV P24 Antigen Negative 09/28/17 06:00 Assessment: 09/30/17 11:39 WITHDRAWAL SX Plan: CONTINUE DETOX
[2017-09-30] MEDS: chlordiazePOXIDE 5 MG CAPSULE PO SCH ×2 (17:38→22:16)
[2017-09-30] MEDS: QUEtiapine FUMARATE 100 MG TABLET (FP) PO SCH (22:16)
[2017-09-30] MEDS: GABAPENTIN 300 MG CAPSULE (FP) PO SCH (22:16)
[2017-09-30] MEDS: THIAMINE HCL 100 MG TABLET (FP) PO SCH (22:16)
[2017-10-01] MEDS ORDERED: chlordiazePOXIDE HCL 10 MG CAPSULE PO SCH ×2 (05:00→17:00)
[2017-10-01] MEDS: NICOTINE POLACRILEX 4 MG GUM BUC PRN (05:44)
[2017-10-01 06:28] VITALS: BP 131/79; PULSE 76; TEMP 96.8
[2017-10-01] MEDS: ASPIRIN 325 MG TABLET PO SCH (09:10)
[2017-10-01] MEDS: PRENATAL VITAMINS W/ FOLIC ACID TABLET (FP) PO SCH (09:10)
[2017-10-01] MEDS: NICOTINE 21 MG/24 HOURS TOPICAL PATCH TD SCH (09:11)
--- NOTE | 2017-10-01 11:13 | DS ---
[facility] Detox Discharge Summary Admission Date: 09/28/17 Discharge Date: 10/01/17 - History Present History: Alcohol Dependence, Cocaine Dependence Additional Comments: DETOX COMPLETED. ALERT O X 3. REFERRED TO [facility] TODAY. Pertinent Past History: SEE DX BELOW - Physical Exam Results Vital Signs: Vital Signs Temperature 96.8 F L 10/01/17 06:28 Pulse Rate 76 10/01/17 06:28 Respiratory Rate 18 10/01/17 06:28 Blood Pressure 131/79 10/01/17 06:28 O2 Sat by Pulse Oximetry (%) Pertinent Admission Physical Exam Findings: WITHDRAWAL SX - Treatment Hospital Course: Detox Protocol Followed, Detoxed Safely, Responded well, Discharged Condition Good, Rehab Referral Accepted Patient has Accepted a Rehab Referral to: [facility] - Medication Discharge Medications: Ambulatory Orders Aspirin [ASA -] 325 mg PO DAILY 05/01/17 Gabapentin [Neurontin] 600 mg PO HS 05/01/17 Quetiapine Fumarate [Seroquel -] 200 mg PO HS 05/01/17 Diphenhydramine HCl [Benadryl -] 25 mg PO Q6H PRN 09/28/17 Quetiapine Fumarate [Seroquel -] 200 mg PO HS #30 tab 09/29/17 - Diagnosis (1) Alcohol dependence with uncomplicated withdrawal Current Visit: Yes Status: Acute (2) Neuropathy Current Visit: Yes Status: Chronic (3) Nicotine dependence Current Visit: Yes Status: Acute Qualifiers: Nicotine product type: cigarettes Substance use status: uncomplicated Qualified Code(s): F17.210 - Nicotine dependence, cigarettes, uncomplicated (4) Cocaine dependence, uncomplicated Current Visit: Yes Status: Acute (5) Varicose vein of leg Current Visit: Yes Status: Chronic - AMA Did Patient Leave Against Medical Advice: No
== END 2017-10-01 12:12 | disposition home or self-care (01) | DRG 774 ==
LOC: YASAS 11:05 → Y3N 14:47
PROVIDERS: ADMIT Internal Medicine; ATTEND Internal Medicine
PROC: HZ2ZZZZ Detoxification Services for Substance Abuse Treatment (ICD-10-PCS; principal; 2017-09-28)
DX: F10.230 Alcohol dependence with withdrawal, uncomplicated (principal); F14.20 Cocaine dependence, uncomplicated; F17.210 Nicotine dependence, cigarettes, uncomplicated; G62.9 Polyneuropathy, unspecified; G47.00 Insomnia, unspecified; I83.90 Asymptomatic varicose veins of unspecified lower extremity; R00.0 Tachycardia, unspecified; Z86.718 Personal history of other venous thrombosis and embolism; Z86.69 Personal history of other diseases of the nervous system and sense organs; Z88.0 Allergy status to penicillin; Z91.14 Patient's other noncompliance with medication regimen
CPT/HCPCS: 36415; 71046-TC-FY; 80053; 81003; 85027; 86593; 87389; 93005; 93010

== ENCOUNTER 2019-10-19 11:31 | Inpatient (IN) | payer OTHER ==
--- NOTE | 2019-10-19 12:06 | BHS.RME ---
Substance Use & Tx History - Substance Use History Alcohol Substance amount: 2 liters vodka Frequency of use: Daily Substance route: Oral Date of Last Use: 10/19/19 Nicotine Substance amount: 1 pack Frequency of use: Daily Substance route: Smoking Date of Last Use: 10/19/19 Physical/Psych/Mental Status - Behavior General Behavior: Increased activity (restlessness, agitation) Eye Contact: Normal - Cooperativeness Cooperativeness: Reluctant - Thinking Thought Processes: Tight, Logical, Goal Directed Thought content: Future oriented - Physical Health Problems Is patient presently having any pain?: No Does patient presently have any injuries (include location): No Does patient currently have a fever: No Is patient : No CIWA Nausea/Vomitin-Mild Nausea/No Vomiting Muscle Tremors: 3 Anxiety: 3 Agitation: 3 Paroxysmal Sweats: 1-Minimal Palms Moist Orientation: 1-Uncertain about Date Tacttile Disturbances: 1-Very Mild Itch/Numbness Auditory Disturbances: 0-None Visual Disturbances: 0-None Headache: 1-Very Mild CIWA-Ar Total Score: 14
--- NOTE | 2019-10-19 13:19 | HP ---
CIWA Score Nausea/Vomitin-Mild Nausea/No Vomiting Muscle Tremors: 3 Anxiety: 3 Agitation: 3 Paroxysmal Sweats: 1-Minimal Palms Moist Orientation: 1-Uncertain about Date Tacttile Disturbances: 1-Very Mild Itch/Numbness Auditory Disturbances: 0-None Visual Disturbances: 0-None Headache: 1-Very Mild CIWA-Ar Total Score: 14 - Admission Criteria OASAS Guidelines: Admission for Medically Managed Detox: Requires at least one of the followin. CIWA greater than 12 2. Seizures within the past 24 hours 3. Delirium tremens within the past 24 hours 4. Hallucinations within the past 24 hours 5. Acute intervention needed for co occurring medical disorder 6. Acute intervention needed for co occurring psychiatric disorder 7. Severe withdrawal that cannot be handled at a lower level of care (continued vomiting, continued diarrhea, abnormal vital signs) requiring intravenous medication and/or fluids 8. Admitting History and Physical - Admission Chief Complaint: Mr. Lanza is a 44 yo gentleman who presents to [facility] stating he is here for "alcohol detox". History of Present Illness: Mr. Lanza is a 44 yo gentleman who presents to [facility] stating he is here for "alcohol detox". He was last here ~6 years ago. He was incarcerated due to an old warrant, in [place], released a few mos ago. He relapsed to drinking 3 mos ago. Prior to incarceration he was sober for one year. PMH: low testosterone PSH: broken left toe Psych: bipolar on Seroquel Substance use history Alcohol: 2 liters of Vodka dialy, first drank at the age of 13y, last drink 6 am today. Blackout yesterday. 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 149 History Source: Patient Limitations to Obtaining History: No Limitations - Smoking History Smoking history: Current every day smoker Have you smoked in the past 12 months: Yes Aproximately how many cigarettes per day: 10 - Alcohol/Substance Use Hx Alcohol Use: Yes Admission ROS [facility] - HPI Allergies/Adverse Reactions: Allergies Allergy/AdvReac Type Severity Reaction Status Date / Time penicillin G Allergy Severe Hives Verified 09/28/17 13:44 Exam Limitations: No Limitations - Ebola screening Have you traveled outside of the country in the last 21 days: No Have you had contact with anyone from an Ebola affected area: No Have you been sick,other than usual withdrawal symptoms: No Do you have a fever: No - Review of Systems Constitutional: Unintentional Wgt. Loss (10 lb weight loss in 30 days) EENT: reports: Blurred Vision (glasses with him. Tinnitis: bilateral for 8 years) Respiratory: reports: No Symptoms reported Cardiac: reports: No Symptoms Reported GI: reports: Nausea : reports: No Symptoms Reported Musculoskeletal: reports: Back Pain Integumentary: reports: No Symptoms Reported, Other (hair loss) Neuro: reports: Headache Endocrine: reports: No Symptoms Reported Hematology: reports: No Symptoms Reported Psychiatric: reports: Anxious, Depressed Patient History - Patient Medical History Hx Anemia: No Hx Asthma: No Hx Chronic Obstructive Pulmonary Disease (COPD): No Hx Cancer: No Hx Cardiac Disorders: No Hx Congestive Heart Failure: No Hx Hypertension: No Hx Hypercholesterolemia: No Hx Pacemaker: No HX Cerebrovascular Accident: No Hx Seizures: No Hx Dementia: No Hx Diabetes: No Hx Gastrointestinal Disorders: Yes (STOMACH ULCER resolved) Hx Liver Disease: No Hx Genitourinary Disorders: Yes (low testosterone) Hx Sexually Transmitted Disorders: No Hx Renal Disease (ESRD): No Hx Thyroid Disease: No Hx Human Immunodeficiency Virus (HIV): No (negative) Hx Hepatitis C: No (negative) Hx Depression: No Hx Suicide Attempt: No (denies) Hx Bipolar Disorder: Yes (non compliance, hospitalized [facility] February 2017) Hx Schizophrenia: No - Patient Surgical History Past Surgical History: Yes Hx Neurologic Surgery: No Hx Cataract Extraction: No Hx Cardiac Surgery: No Hx Lung Surgery: No Hx Breast Surgery: No Hx Breast Biopsy: No Hx Abdominal Surgery: No Hx Appendectomy: No Hx Cholecystectomy: No Hx Genitourinary Surgery: No Hx Section: No Hx Orthopedic Surgery: Yes (Left Knee at age 16 arthroscopic, left toe broken) Other Surgical History: mandible left in 2012/ tooth removed 2weeks ago 2018 Anesthesia Reaction: No - PPD History PPD to be Administered?: Yes - Smoking Cessation Smoking history: Current every day smoker Have you smoked in the past 12 months: Yes Aproximately how many cigarettes per day: 10 Cigars Per Day: 0 Hx Chewing Tobacco Use: No Initiated information on smoking cessation: Yes 'Breaking Loose' booklet given: 10/19/19 - Substances abused Cocaine Substance route: Inhalation Amount used: $100/week Age of first use: 19 Date of last use: 10/17/19 Alcohol Substance route: Oral Amount used: 2 liters Vodka Age of first use: 13 Date of last use: 10/19/19 Marijuana/Hashish Substance route: Smoking Amount used: one joint Age of first use: 19 Date of last use: 10/18/19 Admission Physical Exam [facility] - Physical General Appearance: Yes: Mild Distress, Alcohol on Breath, Anxious HEENTM: Yes: Hearing grossly Normal, Normal Voice Respiratory: Yes: Lungs Clear, Normal Breath Sounds Neck: Yes: Within Normal Limits Breast: Yes: Breast Exam Deferred Cardiology: Yes: S1, S2, Tachycardia Abdominal: Yes: Normal Bowel Sounds, Non Tender, Flat, Soft Genitourinary: Yes: Other (deferred) Back: Yes: Normal Inspection Musculoskeletal: Yes: Within Normal Limits Extremities: Yes: Within Normal Limits Neurological: Yes: Alert Integumentary: Yes: Within Normal Limits Lymphatic: Yes: Within Normal Limits - Diagnostic (1) Cannabis abuse Current Visit: Yes Status: Chronic (2) Alcohol dependence with uncomplicated withdrawal Current Visit: No Status: Acute (3) Cocaine dependence, uncomplicated Current Visit: No Status: Chronic (4) Nicotine dependence Current Visit: Yes Status: Acute Qualifiers: Nicotine product type: cigarettes Substance use status: uncomplicated Qualified Code(s): F17.210 - Nicotine dependence, cigarettes, uncomplicated Cleared for Admission [facility] - Detox or Rehab [facility] Level of Care: Medically Managed Urine Drug Screen - Control Is test valid?: Yes Inpatient Rehab Admission - Rehab Decision to Admit Inpatient rehab admission?: No
[2019-10-19] MEDS ORDERED: chlordiazePOXIDE HCL 25 MG CAPSULE PO PRN (13:42)
[2019-10-19] MEDS ORDERED: MELATONIN 5 MG TABLETS PO PRN (13:42)
[2019-10-19] MEDS ORDERED: METHOCARBAMOL 500 MG TABLET PO PRN (13:42)
[2019-10-19] MEDS ORDERED: ACETAMINOPHEN 325 MG TABLET (FP) PO PRN (13:47)
[2019-10-19] MEDS ORDERED: guaiFENesin 200 MG/10 ML 10 ML UNIT-DOSE CUPS PO PRN (13:50)
[2019-10-19 14:42] VITALS: BMI 23.8
[2019-10-19 17:08] LABS: HEMATOCRIT 42.8 % (35.4-49); HEMOGLOBIN 14.7 GM/dL (11.7-16.9); MCH 31.2 pg (25.7-33.7); MCHC 34.3 g/dl (32.0-35.9); MEAN CELL VOLUME 91.1 fl (80-96); MEAN PLT VOLUME 9.5 fl (7.5-11.1); PLATELET COUNT 275 K/MM3 (134-434); RBC 4.69 M/mm3 (4.00-5.60); RDW 13.3 % (11.9-15.9); WHITE BLOOD COUNT 5.9 K/mm3 (4.0-10.0)
[2019-10-19 17:20] LABS: ALBUMIN 3.9 g/dl (3.4-5.0); BILIRUBIN,TOTAL 0.5 mg/dL (0.2-1); CALCIUM 8.9 mg/dL (8.5-10.1); POTASSIUM 3.4 mmol/L (3.5-5.1); TOT PROT 7.1 g/dl (6.4-8.2)
[2019-10-19] MEDS: chlordiazePOXIDE HCL 25 MG CAPSULE PO SCH ×2 (18:13→22:30)
[2019-10-19] MEDS: THIAMINE HCL 100 MG TABLET (FP) PO SCH (23:50)
[2019-10-20] MEDS: chlordiazePOXIDE HCL 25 MG CAPSULE PO SCH ×4 (05:22→22:06)
--- NOTE | 2019-10-20 13:41 | PN ---
S CIWA - CIWA Score Nausea/Vomitin-No Nausea/No Vomiting Muscle Tremors: 2 Anxiety: 2 Agitation: 2 Paroxysmal Sweats: 2 Orientation: 0-Oriented Tacttile Disturbances: 0-None Auditory Disturbances: 1-Very Mild Visual Disturbances: 1-Very Mild Sensitivity Headache: 2-Mild CIWA-Ar Total Score: 12 BHS Progress Note (SOAP) Subjective: Asking to see Psychiatry for Seroquel rx Objective: 10/20/19 13:37 Laboratory Tests 10/19/19 10/19/19 10/19/19 13:05 13:05 13:05 WBC 5.9 RBC 4.69 Hgb 14.7 Hct 42.8 MCV 91.1 MCH 31.2 MCHC 34.3 RDW 13.3 Plt Count 275 MPV 9.5 Sodium 143 Potassium 3.4 L Chloride 108 H Carbon Dioxide 26 Anion Gap 9 BUN 13.0 Creatinine 1.0 Est GFR (CKD-EPI)AfAm 106.36 Est GFR (CKD-EPI)NonAf 91.77 Random Glucose 133 H Calcium 8.9 Total Bilirubin 0.5 AST 23 ALT 28 Alkaline Phosphatase 76 Total Protein 7.1 Albumin 3.9 RPR Titer Nonreactive Vital Signs Temperature 98 F 10/20/19 08:34 Pulse Rate 70 10/20/19 08:34 Respiratory Rate 20 10/20/19 08:34 Blood Pressure 119/75 10/20/19 08:34 O2 Sat by Pulse Oximetry (%) PE Gnl: WDWN, appears slightly anxious Mental status: awake, alert Motor: moves limbs well Coord: tremor with arms extended Assessment: 10/20/19 13:39 1. Alcohol use disorder Plan: 1. Librium withdrawal protocol 2. Psychiatry consult
--- NOTE | 2019-10-20 13:54 | CONSULT ---
[facility] Psychiatric Consult - Data Date of interview: 10/20/19 Admission source: [facility] Identifying data: Revisit to [facility] and admission to [facility] for this 44 y/ o male self-referred for detoxification treatment. JAYESH issues : alcohol, cocaine, nicotine, marijuana. Patient is single without children, domiciled, currently unemployed and supported on welfare. Substance Abuse History: Discussed with patient. Details in current [facility] report as follows : Smoking history: Current every day smoker. Have you smoked in the past 12 months: Yes. Aproximately how many cigarettes per day: 10. Cigars Per Day: 0. Hx Chewing Tobacco Use: No. Initiated information on smoking cessation : Yes. 'Breaking Loose' booklet given: 10/19/19. - Substances abused. Cocaine. Substance route: Inhalation. Amount used: $100/week. Age of first use: 19. Date of last use: 10/17/19. Alcohol. Substance route: Oral. Amount used: 2 liters Vodka. Age of first use: 13. Date of last use: . Marijuana/Hashish. Substance route: Smoking. Amount used: one joint. Age of first use: 19. Date of last use: 10/18/19 Medical History: Medical profile is remarkable for gastric ulcer, peripheral neuropathy, deep vein thrombosis, antecedent of substance-related seizures and past surgeries (fracture of left mandilble in 2013 + arthroscopic surgery on left knee at age16). Psychiatric History: Patient presents with long-standing history of psychiatric disturbances : age 19 (admission to [facility]). He endorses the diagnoses of Bipolar Disorder and PTSD. Patient reports history of psychiatric hospitalizations at several institutions ([facility], [facility]), [facility], [facility]). Admits to " more than 10 psychiatric hospitalizations. Mr Willie used to attend [facility] OPD. he used to be maintatined on a regimen of depakote + seroquel + effexor XR + vistaril prn. Non-adherent to psychotropic medications for weeks. Has been lost to psychiatric OPD care for months. Patient states that he has been relying on ED visits or primary care providers for " occasional " refills of medications. Patient denies history of suicide attempts. Physical/Sexual Abuse/Trauma History: Patient denies history of abuse. Additional Comment: Toxicology not available for review. Mental Status Exam - Mental Status Exam Alert and Oriented to: Time, Place, Person Cognitive Function: Good Patient Appearance: Unkempt, Disheveled Mood: Nervous, Withdrawn Affect: Appropriate, Normal Range Patient Behavior: Fatigued, Appropriate, Cooperative Speech Pattern: Clear, Appropriate Voice Loudness: Normal Thought Process: Intact, Goal Oriented Thought Disorder: Not Present Hallucinations: Denies Suicidal Ideation: Denies Homicidal Ideation: Denies Insight/Judgement: Poor Sleep: Poorly, Difficulty falling asleep Appetite: Good Gait/Station: Normal Psychiatric Findings - Problem List ([place] 1, 2,3) (1) Alcohol dependence with uncomplicated withdrawal Current Visit: Yes Status: Acute (2) Cannabis abuse Current Visit: Yes Status: Chronic (3) Cocaine abuse Current Visit: Yes Status: Chronic (4) Nicotine dependence Current Visit: Yes Status: Acute Qualifiers: Nicotine product type: cigarettes Substance use status: uncomplicated Qualified Code(s): F17.210 - Nicotine dependence, cigarettes, uncomplicated (5) Substance induced mood disorder Current Visit: Yes Status: Chronic (6) Insomnia Current Visit: Yes Status: Chronic (7) Non-compliance Current Visit: Yes Status: Chronic Comment: Lost to psychiatric OPD care. - Initial Treatment Plan Initial Treatment Plan: Psychoeducation. Sleep hygiene. Support. Detoxification. AA meetings. Groups. MAT services explained to the patient. Resumed at patient's request : seroquel 150 mg po hs + gabapentin 200 mg tid. Side effects/benefits of both drugs are discussed with patient. He expresses agreement with this plan of care. Observation.
[2019-10-20] MEDS ORDERED: hydrOXYzine PAMOATE 25 MG CAPSULE (FP) PO PRN ×2 (15:32→15:36)
[2019-10-20] MEDS ORDERED: MENTHOL/PHENOL 1 EACH UD MM PRN (15:36)
[2019-10-20] MEDS ORDERED: MAGNESIUM HYDROX 2400MG/30ML ORAL SUSPENSION 30 ML CUP PO PRN (15:36)
[2019-10-20] MEDS ORDERED: MAG HYDROX/AL HYDROX/SIMETH 30 ML UNIT-DOSE CUP PO PRN (15:36)
[2019-10-20] MEDS ORDERED: BISMUTH SUBSALICYLATE 524 MG/30 ML UD PO PRN (15:36)
[2019-10-20] MEDS ORDERED: MAGNESIUM CITRATE 300 ML BOTTLE PO PRN (15:36)
[2019-10-20] MEDS ORDERED: METHOCARBAMOL 500 MG TABLET PO PRN (15:36)
[2019-10-20] MEDS ORDERED: ACETAMINOPHEN 325 MG TABLET (FP) PO PRN (15:36)
[2019-10-20] MEDS ORDERED: IBUPROFEN 400 MG TABLET (FP) PO PRN (15:36)
[2019-10-20] MEDS: NICOTINE POLACRILEX 2 MG GUM BC PRN (17:14)
[2019-10-20] MEDS: QUEtiapine FUMARATE 100 MG TABLET (FP) PO SCH (22:05)
[2019-10-20] MEDS: GABAPENTIN 100 MG CAPSULE PO SCH (22:05)
[2019-10-20] MEDS: THIAMINE HCL 100 MG TABLET (FP) PO SCH (22:08)
[2019-10-20] MEDS ORDERED: THIAMINE HCL 100 MG TABLET (FP) PO SCH (22:35)
[2019-10-21] MEDS: chlordiazePOXIDE HCL 25 MG CAPSULE PO SCH ×4 (06:19→22:01)
[2019-10-21] MEDS: GABAPENTIN 100 MG CAPSULE PO SCH ×3 (07:19→22:00)
[2019-10-21 09:46] LABS: HEMATOCRIT 40.1 % (35.4-49); HEMOGLOBIN 13.7 GM/dL (11.7-16.9); MCH 31.1 pg (25.7-33.7); MCHC 34.3 g/dl (32.0-35.9); MEAN CELL VOLUME 90.9 fl (80-96); MEAN PLT VOLUME 9.4 fl (7.5-11.1); PLATELET COUNT 204 K/MM3 (134-434); RBC 4.41 M/mm3 (4.00-5.60); RDW 13.2 % (11.9-15.9); WHITE BLOOD COUNT 5.1 K/mm3 (4.0-10.0)
[2019-10-21 10:25] LABS: ALBUMIN 3.3 g/dl (3.4-5.0); BILIRUBIN,TOTAL 0.6 mg/dL (0.2-1); CREATININE 0.7 mg/dL (0.55-1.3); TOT PROT 5.8 g/dl (6.4-8.2)
[2019-10-21] MEDS: PRENATAL VITAMINS W/ FOLIC ACID TABLET (FP) PO SCH (10:33)
[2019-10-21] MEDS: NICOTINE POLACRILEX 2 MG GUM BC PRN ×4 (10:35→20:04)
--- NOTE | 2019-10-21 12:16 | PN ---
S CIWA - CIWA Score Nausea/Vomitin-No Nausea/No Vomiting Muscle Tremors: 2 Anxiety: 3 Agitation: 0-Normal Activity Paroxysmal Sweats: 3 Orientation: 0-Oriented Tacttile Disturbances: 0-None Auditory Disturbances: 0-None Visual Disturbances: 0-None Headache: 2-Mild CIWA-Ar Total Score: 10 BHS Progress Note (SOAP) Subjective: c/o sweats, anxiety, shakes, and headache. Objective: 10/21/19 12:12 Vital Signs 10/21/19 10/21/19 10/21/19 06:30 07:20 09:20 Temperature 97.4 F L 96.9 F L Pulse Rate 54 L 92 H Respiratory 16 16 16 Rate Blood Pressure 122/70 106/60 Laboratory Last Values WBC 5.1 K/mm3 (4.0-10.0) 10/21/19 07:20 RBC 4.41 M/mm3 (4.00-5.60) 10/21/19 07:20 Hgb 13.7 GM/dL (11.7-16.9) 10/21/19 07:20 Hct 40.1 % (35.4-49) 10/21/19 07:20 MCV 90.9 fl (80-96) 10/21/19 07:20 MCH 31.1 pg (25.7-33.7) 10/21/19 07:20 MCHC 34.3 g/dl (32.0-35.9) 10/21/19 07:20 RDW 13.2 % (11.9-15.9) 10/21/19 07:20 Plt Count 204 K/MM3 (134-434) D 10/21/19 07:20 MPV 9.4 fl (7.5-11.1) 10/21/19 07:20 Sodium 141 mmol/L (136-145) 10/21/19 07:20 Potassium 4.0 mmol/L (3.5-5.1) 10/21/19 07:20 Chloride 110 mmol/L (98-107) H 10/21/19 07:20 Carbon Dioxide 28 mmol/L (21-32) 10/21/19 07:20 Anion Gap 3 MMOL/L (8-16) L 10/21/19 07:20 BUN 11.0 mg/dL (7-18) 10/21/19 07:20 Creatinine 0.7 mg/dL (0.55-1.3) 10/21/19 07:20 Est GFR (CKD-EPI)AfAm 133.96 10/21/19 07:20 Est GFR (CKD-EPI)NonAf 115.58 10/21/19 07:20 Random Glucose 91 mg/dL (74-106) 10/21/19 07:20 Calcium 9.0 mg/dL (8.5-10.1) 10/21/19 07:20 Total Bilirubin 0.6 mg/dL (0.2-1) 10/21/19 07:20 AST 18 U/L (15-37) 10/21/19 07:20 ALT 23 U/L (13-61) 10/21/19 07:20 Alkaline Phosphatase 73 U/L (45-117) 10/21/19 07:20 Total Protein 5.8 g/dl (6.4-8.2) L 10/21/19 07:20 Albumin 3.3 g/dl (3.4-5.0) L 10/21/19 07:20 RPR Titer Nonreactive (NONREACTIVE) 10/21/19 07:20 Labs noted. Assessment: 10/21/19 12:15 AOX3, in no respiratory distress. Full ROM, ambulating in the unit. Withdrawal symptoms. Plan: continue detox.
[2019-10-21] MEDS: THIAMINE HCL 100 MG TABLET (FP) PO SCH (22:00)
[2019-10-21] MEDS: QUEtiapine FUMARATE 100 MG TABLET (FP) PO SCH (22:00)
[2019-10-22] MEDS ORDERED: chlordiazePOXIDE HCL 10 MG CAPSULE PO PRN
[2019-10-22] MEDS: chlordiazePOXIDE HCL 10 MG CAPSULE PO SCH ×4 (05:55→22:15)
[2019-10-22] MEDS: GABAPENTIN 100 MG CAPSULE PO SCH ×3 (06:22→22:16)
[2019-10-22] MEDS: PRENATAL VITAMINS W/ FOLIC ACID TABLET (FP) PO SCH (10:46)
--- NOTE | 2019-10-22 12:23 | PN ---
[facility] CIWA - CIWA Score Nausea/Vomitin-No Nausea/No Vomiting Muscle Tremors: 2 Anxiety: 3 Agitation: 1-Slight > Activity Paroxysmal Sweats: 2 Orientation: 0-Oriented Tacttile Disturbances: 0-None Auditory Disturbances: 0-None Visual Disturbances: 1-Very Mild Sensitivity Headache: 0-None Present CIWA-Ar Total Score: 9 S Progress Note (SOAP) Subjective: 44 years old male admitted on 10/19/19 for alcohol withdrawal sx management treating with librium detox regiment feeling ok today attend some behavior and psychosocial therapies groups and meetings Objective: 10/22/19 12:24 Vital Signs Temperature 96.4 F L 10/22/19 05:29 Pulse Rate 65 10/22/19 05:29 Respiratory Rate 16 10/22/19 06:18 Blood Pressure 106/62 10/22/19 05:29 O2 Sat by Pulse Oximetry (%) Laboratory Last Values WBC 5.1 K/mm3 (4.0-10.0) 10/21/19 07:20 RBC 4.41 M/mm3 (4.00-5.60) 10/21/19 07:20 Hgb 13.7 GM/dL (11.7-16.9) 10/21/19 07:20 Hct 40.1 % (35.4-49) 10/21/19 07:20 MCV 90.9 fl (80-96) 10/21/19 07:20 MCH 31.1 pg (25.7-33.7) 10/21/19 07:20 MCHC 34.3 g/dl (32.0-35.9) 10/21/19 07:20 RDW 13.2 % (11.9-15.9) 10/21/19 07:20 Plt Count 204 K/MM3 (134-434) D 10/21/19 07:20 MPV 9.4 fl (7.5-11.1) 10/21/19 07:20 Sodium 141 mmol/L (136-145) 10/21/19 07:20 Potassium 4.0 mmol/L (3.5-5.1) 10/21/19 07:20 Chloride 110 mmol/L (98-107) H 10/21/19 07:20 Carbon Dioxide 28 mmol/L (21-32) 10/21/19 07:20 Anion Gap 3 MMOL/L (8-16) L 10/21/19 07:20 BUN 11.0 mg/dL (7-18) 10/21/19 07:20 Creatinine 0.7 mg/dL (0.55-1.3) 10/21/19 07:20 Est GFR (CKD-EPI)AfAm 133.96 10/21/19 07:20 Est GFR (CKD-EPI)NonAf 115.58 10/21/19 07:20 Random Glucose 91 mg/dL (74-106) 10/21/19 07:20 Calcium 9.0 mg/dL (8.5-10.1) 10/21/19 07:20 Total Bilirubin 0.6 mg/dL (0.2-1) 10/21/19 07:20 AST 18 U/L (15-37) 10/21/19 07:20 ALT 23 U/L (13-61) 10/21/19 07:20 Alkaline Phosphatase 73 U/L (45-117) 10/21/19 07:20 Total Protein 5.8 g/dl (6.4-8.2) L 10/21/19 07:20 Albumin 3.3 g/dl (3.4-5.0) L 10/21/19 07:20 RPR Titer Nonreactive (NONREACTIVE) 10/21/19 07:20 lab noted Assessment: 10/22/19 12:24 alcohol withdrawal Plan: librium regiment
[2019-10-22] MEDS: NICOTINE POLACRILEX 2 MG GUM BC PRN ×2 (18:07→22:25)
[2019-10-22] MEDS: THIAMINE HCL 100 MG TABLET (FP) PO SCH (22:15)
[2019-10-22] MEDS: QUEtiapine FUMARATE 100 MG TABLET (FP) PO SCH (22:16)
[2019-10-23] MEDS ORDERED: chlordiazePOXIDE HCL 10 MG CAPSULE PO SCH (05:00)
[2019-10-23] MEDS: GABAPENTIN 100 MG CAPSULE PO SCH ×2 (05:50→13:46)
[2019-10-23 09:24] VITALS: BP 124/85; PULSE 117; TEMP 97.6
[2019-10-23] MEDS: PRENATAL VITAMINS W/ FOLIC ACID TABLET (FP) PO SCH (10:10)
[2019-10-23] MEDS: NICOTINE POLACRILEX 2 MG GUM BC PRN ×2 (10:12→13:46)
--- NOTE | 2019-10-23 11:20 | DS ---
[facility] Detox Discharge Summary Admission Date: 10/19/19 Discharge Date: 10/23/19 - History Present History: Alcohol Dependence Additional Comments: 44 years old male admitted on 10/19/19 for alcohol withdrawal sx management treated with librium detox regiment patient prefers to leave the detox one day early as estimated discharge date 11/09 seen by psychiatrist resume seroqual and gabapentin Mr Willie is PPD positive had chest x ray 2018 order chest x ray today and will be performed today, patient had chest x ray today patient is alert oriented x 3 respiratory clear lungs bilaterally on auscultation extremities full range of motion skin warm and dry Pertinent Past History: time for discharge 43 minutes - Physical Exam Results Vital Signs: Vital Signs Temperature 97.6 F 10/23/19 08:36 Pulse Rate 117 H 10/23/19 08:36 Respiratory Rate 10/23/19 08:36 Blood Pressure 124/85 10/23/19 08:36 O2 Sat by Pulse Oximetry (%) Pertinent Admission Physical Exam Findings: alcohol withdrawal Vital Signs Temperature 97.6 F 10/23/19 08:36 Pulse Rate 117 H 10/23/19 08:36 Respiratory Rate 10/23/19 08:36 Blood Pressure 124/85 10/23/19 08:36 O2 Sat by Pulse Oximetry (%) Laboratory Last Values WBC 5.1 K/mm3 (4.0-10.0) 10/21/19 07:20 RBC 4.41 M/mm3 (4.00-5.60) 10/21/19 07:20 Hgb 13.7 GM/dL (11.7-16.9) 10/21/19 07:20 Hct 40.1 % (35.4-49) 10/21/19 07:20 MCV 90.9 fl (80-96) 10/21/19 07:20 MCH 31.1 pg (25.7-33.7) 10/21/19 07:20 MCHC 34.3 g/dl (32.0-35.9) 10/21/19 07:20 RDW 13.2 % (11.9-15.9) 10/21/19 07:20 Plt Count 204 K/MM3 (134-434) D 10/21/19 07:20 MPV 9.4 fl (7.5-11.1) 10/21/19 07:20 Sodium 141 mmol/L (136-145) 10/21/19 07:20 Potassium 4.0 mmol/L (3.5-5.1) 10/21/19 07:20 Chloride 110 mmol/L (98-107) H 10/21/19 07:20 Carbon Dioxide 28 mmol/L (21-32) 10/21/19 07:20 Anion Gap 3 MMOL/L (8-16) L 10/21/19 07:20 BUN 11.0 mg/dL (7-18) 10/21/19 07:20 Creatinine 0.7 mg/dL (0.55-1.3) 10/21/19 07:20 Est GFR (CKD-EPI)AfAm 133.96 10/21/19 07:20 Est GFR (CKD-EPI)NonAf 115.58 10/21/19 07:20 Random Glucose 91 mg/dL (74-106) 10/21/19 07:20 Calcium 9.0 mg/dL (8.5-10.1) 10/21/19 07:20 Total Bilirubin 0.6 mg/dL (0.2-1) 10/21/19 07:20 AST 18 U/L (15-37) 10/21/19 07:20 ALT 23 U/L (13-61) 10/21/19 07:20 Alkaline Phosphatase 73 U/L (45-117) 10/21/19 07:20 Total Protein 5.8 g/dl (6.4-8.2) L 10/21/19 07:20 Albumin 3.3 g/dl (3.4-5.0) L 10/21/19 07:20 RPR Titer Nonreactive (NONREACTIVE) 10/21/19 07:20 lab noted - Treatment Hospital Course: Detox Protocol Followed, Detoxed Safely, Responded well, Discharged Condition Good, Rehab Referral Accepted Patient has Accepted a Rehab Referral to: [facility] - Medication Discharge Medications: Ambulatory Orders Aspirin [ASA -] 325 mg PO DAILY 05/01/17 Quetiapine Fumarate [Seroquel -] 300 mg PO HS 05/01/17 Cyclobenzaprine HCl [Flexeril 10 mg] 10 mg PO BID PRN 10/19/19 Gabapentin [Neurontin] 200 mg PO TID #90 capsule 10/23/19 Quetiapine Fumarate [Seroquel -] 100 mg PO HS #30 tablet 10/23/19 - Diagnosis (1) Positive PPD Current Visit: Yes Status: Resolved (2) Alcohol dependence with uncomplicated withdrawal Current Visit: Yes Status: Acute (3) Nicotine dependence Current Visit: Yes Status: Acute Qualifiers: Nicotine product type: cigarettes Substance use status: in withdrawal Qualified Code(s): F17.213 - Nicotine dependence, cigarettes, with withdrawal - AMA Did Patient Leave Against Medical Advice: No CIWA Score - CIWA Score Nausea/Vomitin-No Nausea/No Vomiting Muscle Tremors: 2 Anxiety: 2 Agitation: 0-Normal Activity Paroxysmal Sweats: 1-Minimal Palms Moist Orientation: 0-Oriented Tacttile Disturbances: 0-None Auditory Disturbances: 0-None Visual Disturbances: 0-None Headache: 0-None Present CIWA-Ar Total Score: 5
[2019-10-24] MEDS ORDERED: chlordiazePOXIDE HCL 10 MG CAPSULE PO ONE (05:00)
== END 2019-10-23 02:31 | disposition home or self-care (01) | DRG 774 ==
LOC: YASAS 11:31 → Y3N 14:37
PROVIDERS: ADMIT Allergy & Immunology; ATTEND Allergy & Immunology
PROC: HZ2ZZZZ Detoxification Services for Substance Abuse Treatment (ICD-10-PCS; principal; 2019-10-19)
DX: F10.230 Alcohol dependence with withdrawal, uncomplicated (principal); F14.20 Cocaine dependence, uncomplicated; F12.20 Cannabis dependence, uncomplicated; F17.213 Nicotine dependence, cigarettes, with withdrawal; F19.24 Other psychoactive substance dependence with psychoactive substance-induced mood disorder; F31.9 Bipolar disorder, unspecified; F43.10 Post-traumatic stress disorder, unspecified; G62.9 Polyneuropathy, unspecified; G47.00 Insomnia, unspecified; R76.11 Nonspecific reaction to tuberculin skin test without active tuberculosis; Z87.19 Personal history of other diseases of the digestive system; Z86.718 Personal history of other venous thrombosis and embolism; Z79.82 Long term (current) use of aspirin; Z56.0 Unemployment, unspecified; Z88.0 Allergy status to penicillin; Z91.19 Patient's noncompliance with other medical treatment and regimen
CPT/HCPCS: 36415; 71046-TC-FY; 80053; 85027; 86593